=== PATIENT | male | born 1990 | race Caucasian/White ===

== ENCOUNTER 2016-06-09 22:21 | Inpatient (IN) | payer MEDICAID, OTHER ==
[~2016-06-09] VITALS: Ht 185.4 cm; Wt 55.0 kg
[2016-06-10 01:40] VITALS: BP 126/83; PULSE 92; RESP 16; TEMP 98; O2SAT 98
[2016-06-10] MEDS ORDERED: MAGNESIUM HYDROXIDE SUSP 30 ML CUP PO PRN (03:30)
[2016-06-10] MEDS ORDERED: BENZTROPINE MESYLATE 1 MG TAB PO PRN (03:30)
[2016-06-10] MEDS ORDERED: BENZTROPINE MESYLATE 2 MG/2 ML VIAL IM PRN (03:30)
[2016-06-10 06:07] VITALS: BP 89/66; PULSE 76; RESP 17; TEMP 97.5
--- NOTE | 2016-06-10 10:55 | HHI.HP ---
Provisional Diagnosis Admission Date Jun 10, 2016 at 01:45 [place] I. Adjustment disorder with depressed mood Rule out attention deficit disorder. Ferron II. No diagnosis Ferron III. Please see the emergency room evaluation Ferron IV. Moderate stress difficulty coping Ferron V. GAF of 45 Certification of Person's Competence To Provide Express and Informed Consent I have personally examined Albino Clark , a [facility] on, Jun 10, 2016 10:46. Express and informed consent means consent voluntarily given in writing, by a competent person, after sufficient explanation and disclosure of the subject matter involved to enable the person to make a knowing and willful decision without any element of force, fraud, deceit, duress, or other form of constraint or coercion. This person is 18 years of age or older, is not now known to be incompetent to consent to treatment with a guardian advocate, and does not have a health care surrogate or proxy currently making medical treatment decisions. I have found this person to be one of the following: [x] Competent to provide express and informed consent, as defined above, for voluntary admission to this facility and is competent to provide express and informed consent for treatment. He/she has the consistent capacity to make well reasoned, willful, and knowing decisions concerning his or her medical or mental health treatment. The person fully and consistently understands the purpose of the admission for examination/placement and is fully capable of personally exercising all rights assured under [place] Incompetent to provide express and informed consent to voluntary admission, and this is incompetent to provide express and informed consent to treatment. The person must be transferred to involuntary status and a petition for a guardian advocate filed with the Circuit Court. [] Refusing to provide express and informed consent to voluntary admission but is competent to provide express and informed consent for treatment. The person must be discharged or transferred to involuntary status. Form shall be completed within 24 hours of a person's arrival at the receiving facility and filed in the clinical record of each person: 1. Admitted on a voluntary basis 2. Permitted to provide express and informed consent to his/her own treatment 3. Allowed to transfer from involuntary to voluntary status 4. Prior to permitting a person to consent to his or her own treatment after having been previously found incompetent to consent to treatment. History of Present Illness Capacity: Has Capacity HPI This is a 25-year-old white to male who was admitted under Hernandez act because he was threatening to hurt himself. Patient claimed that he was under a lot of stress he was working out of town and his fiance left the baby is alone and they were taken away from him. At the present time the children are with the aunt. And he threatened to hurt himself to his cousin who called the police and patient was Hernandez acted. He feels frustrated he feels sorry he did not mean to harm himself he wants to go and take care of his baby and family. This is his first time he is in a psychiatric hospital. He has never attempted to harm himself or threatened to hurt himself. He doesn't abuse any alcohol or drugs. The only complaint he has is that he is he feels like he has a scatter brain he cannot focus on one thing he has 10 different things going on at the same time he is hyper he is worried about his daughter. When he tried his friend's Adderall it made a big difference that point still worse him having attention deficit disorder. Patient denied any active auditory or visual hallucinations or any suicidal ideation intentions or plan. He is willing to sign voluntary and cooperative with the treatment Review of Systems Constitutional: DENIES: Diaphoretic episodes, Fatigue, Fever, Weight gain, Weight loss, Chills, Dizziness, Change in appetite, Night Sweats Endocrine: DENIES: Heat/cold intolerance, Polydipsia, Polyuria, Polyphagia Eyes: DENIES: Blurred vision, Diplopia, Eye inflammation, Eye pain, Vision loss , Photosensitivity, Double Vision Ears, nose, mouth, throat: DENIES: Tinnitus, Hearing loss, Vertigo, Nasal discharge, Oral lesions, Throat pain, Hoarseness, Ear Pain, Running Nose, Epistaxis, Sinus Pain, Toothache, Odynophagia Respiratory: DENIES: Apneas, Cough, Snoring, Wheezing, Hemoptysis, Sputum production, Shortness of breath Cardiovascular: DENIES: Chest pain, Palpitations, Syncope, Dyspnea on Exertion , PND, Lower Extremity Edema, Orthopnea, Claudication Gastrointestinal: DENIES: Abdominal pain, Black stools, Bloody stools, Constipation, Diarrhea, Nausea, Vomiting, Difficulty Swallowing, Anorexia Genitourinary: DENIES: Sexual dysfunction, Urinary frequency, Urinary incontinence, Urgency, Hematuria, Dysuria, Nocturia, Penile Discharge, Testicular Pain, Testicular Swelling Musculoskeletal: DENIES: Joint pain, Muscle aches, Stiffness, Joint Swelling, Back pain, Neck pain Integumentary: DENIES: Abnormal pigmentation, Nail changes, Pruritus, Rash Hematologic/lymphatic: DENIES: Bruising, Lymphadenopathy Immunologic/allergic: DENIES: Eczema, Urticaria Neurologic: DENIES: Abnormal gait, Headache, Localized weakness, Paresthesias, Seizures, Speech Problems, Tremor, Poor Balance Psychiatric: COMPLAINS OF: Mood changes, Depression Past Psych History Psychological trauma history Patient denied any physical verbal or sexual abuse growing up his childhood was happy Violence risk - others (6 mos) Patient denies Violence risk - self (6 mos) Patient denies any suicidal ideation intentions or plan Substance Abuse History Drugs/Alcohol past 12 months Patient denied any alcohol or drug use and/or abuse Past Family Social History Coded Allergies: No Known Allergies (Unverified , 06/10/16) Current Medications Medications (Trade) Dose Ordered Sig/Jason Route Start Time Stop Time Status Last Admin (Atarax) 50 mg Q6H PRN PO 06/10/16 03:30 (Cogentin) 1 mg Q12H PRN PO 06/10/16 03:30 (Cogentin Inj) 1 mg Q12H PRN IM 06/10/16 03:30 (Desyrel) 50 mg HS PRN PO 06/10/16 03:30 (Tylenol) 650 mg Q4H PRN PO 06/10/16 03:30 (Milk Of Magnesia Liq) 30 ml DAILY PRN PO 06/10/16 03:30 (Mag-Al Plus Susp Liq) 30 ml Q6H PRN PO 06/10/16 03:30 (Pneumovax-23 Inj) 25 mcg ONCE ONCE IM 06/11/16 10:00 06/11/16 10:01 Family History Negative for any emotional difficulty nervous breakdown or suicide attempt Social History Patient was born in [place]. He has 3 sisters and 1 brother. He is close to his parents. Patient claimed that his childhood was pretty happy he denied any physical verbal or sexual abuse but he quit in 11th grade. He was living with his girlfriend and had one baby. He has been working out of town and trying to support the family. He denied any legal difficulty denies any drug abuse. Denied any previous history of inpatient psychiatric hospitalization or suicide attempt. Patient's Strengths (min. 2) Patient is cooperative willing to take the medication Physical Exam Patient denied any physical complaints occasionally he has pain in his right arm and he used to take Lortab that helps him. Denies any chest discomfort or lung problem or any other acute physical abnormality his vital signs are stable Vital Signs Vital Signs Date Time Temp Pulse Resp B/P Pulse Ox O2 Delivery O2 Flow Rate FiO2 06/10/16 06:07 97.5 76 17 89/66 06/10/16 01:40 98 Mental Status Examination This is a 25-year-old white male who looks about the same as his stated age was alert oriented 3 cooperative casually dressed his speech was slow without any evidence of loose associations or flights of ideas or pressure speech his mood was described as feeling depressed and worried about his daughter. His affect was sad and tearful. He denied any suicidal ideation intentions or plan denied any auditory or visual hallucinations. He denied any paranoid delusion. He seems to be of average intelligence with fairly good memory. His insight is fair and his judgment seems to be okay on hypothetical situation. His gait is normal. His language is normal his fund of knowledge is average Assessment & Plan Problem List: (1) Adjustment disorder with depressed mood ICD Code: F43.21 Assessment & Plan Estimated LOS: 3 days. This is a 25-year-old white male who was admitted under Hernandez act because he was threatening to harm himself. Patient claimed that he was under a lot of stress losing his 1-year-old daughter. But now he feels sorry he did not mean to harm himself he was telling his cousin and he called the police and he was Hernandez acted. His willing to work as an outpatient once his stabilize.. Admit observe and evaluate and treat Patient will participate in all the therapeutic activity on the floor. Patient may sign voluntary. We will give him Zoloft. We will ask social work nurse to assist in aftercare and discharge planning. Side effect another alternative treatment were explained to the patient. Request HC Surrog/Guard Advoc?: No Stu Mathis MD Jun 10, 2016 10:55
[2016-06-10 11:44] LABS: AUTOMATED NEUTROPHIL # 4.5 TH/MM3 (1.8-7.7); BASOPHIL % 0.3 % (0.0-2.0); EOSINOPHIL # 0.1 TH/MM3 (0-0.4); EOSINOPHIL % 1.2 % (0.0-4.0); HEMATOCRIT 49.8 % (39.0-51.0); HEMO FLAGS DIFF FINAL; LYMPH % 25.6 % (9.0-44.0); LYMPHOCYTE # 1.8 TH/MM3 (1.0-4.8); MEAN CELL VOLUME 90.7 FL (80.0-100.0); MEAN CORPUSCULAR HEMOGLOBIN 30.7 PG (27.0-34.0); MEAN CORPUSCULAR HGB CONC 33.9 % (32.0-36.0); MONO % 10.7 % (0.0-8.0); NEUT % 62.2 % (16.0-70.0); PLATELET COUNT 259 TH/MM3 (150-450); RED BLOOD COUNT 5.49 MIL/MM3 (4.50-5.90); RED CELL DISTRIBUTION WIDTH 13.9 % (11.6-17.2); WHITE BLOOD COUNT 7.2 TH/MM3 (4.0-11.0)
[2016-06-10] MEDS: DEXTROAMPHETAMINE/AMPHETAMINE 20 MG TAB PO SCH (12:00)
[2016-06-10 12:07] LABS: ALT (GPT) 16 U/L (12-78); ANION GAP 7 MEQ/L (5-15); AST (GOT) 11 U/L (15-37); BICARBONATE 30.2 MEQ/L (21.0-32.0); BLOOD UREA NITROGEN 13 MG/DL (7-18); CHLORIDE 104 MEQ/L (98-107); GLOMERULAR FILTRATION RATE 110 ML/MIN (>89); POTASSIUM 4.2 MEQ/L (3.5-5.1); SODIUM (NA) 141 MEQ/L (136-145)
[2016-06-10 12:09] LABS: ALKALINE PHOSPHATASE 58 U/L (45-117); TOTAL BILIRUBIN ADULT 0.6 MG/DL (0.2-1.0)
[2016-06-10] MEDS: ACETAMINOPHEN 325 MG TAB PO PRN (15:46)
[2016-06-10 18:15] VITALS: BP 122/90; PULSE 78; RESP 12; TEMP 97.9; O2SAT 99
[2016-06-10] MEDS: traZODone HCL 50 MG TAB PO PRN (21:24)
[2016-06-10] MEDS: SERTRALINE HCL 50 MG TAB PO SCH (21:24)
[2016-06-11 05:20] VITALS: BP 134/79; PULSE 94; RESP 18; TEMP 97.8; O2SAT 98
[2016-06-11] MEDS: DEXTROAMPHETAMINE/AMPHETAMINE 20 MG TAB PO SCH (09:29)
[2016-06-11] MEDS ORDERED: PNEUMOCOCCAL POLYVALENT INJ 25 MCG/0.5 ML SYR IM ONE (10:00)
--- NOTE | 2016-06-11 14:25 | HHI.PYPN ---
Subjective Remarks Pt seen in coverage for Dr. Pham. Chart reviewed. Case d/w RN. On my exam, pt c/o opiate w/d sxs. Says he uses 5x30mg Roxicodone/day. Endorses nausea, myalgias, rhinorrhea/lacrimation. Denies SI. Sleep poor. No side effects from medications. Review of Systems Other As above. Otherwise, no physical complaints. Objective Alert: Yes [place]: Person, Place, Date, Situation Mood: Anxious Affect: Restricted (dysphoric) Memory Intact: Comment (Fair) Hallucinations: Other (None) Delusions: No Delusion Type: Other (No delusions) Suicidal: Ideation (Denies SI) Homicidal: Ideation (No HI) Insight/Judgement Fair Remarks Somewhat diaphoretic with some lacrimation and piloerection. No rhinorrhea. No other motoric abnormalities. TP linear. Labs Labs reviewed. Vitals/IOs Vital Signs Date Time Temp Pulse Resp B/P Pulse Ox O2 Delivery O2 Flow Rate FiO2 06/11/16 05:20 97.8 94 18 134/79 98 Assessment & Plan Problem List: (1) Adjustment disorder with depressed mood ICD Code: F43.21 (2) Opiate dependence ICD Code: F11.20 Assessment & Plan Add opiate w/d meds: clonidine, Zofran, Imodium, baclofen. Wonder about using a psychostimulant in this opiate dependent pt but will continue for now. Encourage PO. Continue other medications and care as ordered. Justification for Cont. Inpt. Observing for safety. Discharge Planning Per Dr. Pham. Request HC Surrog/Guard Advoc?: No Problem Qualifiers (1) Opiate dependence: Qualified Code: F11.23 - Opioid dependence with withdrawal Abdiel Godwin MD Jun 11, 2016 14:25
[2016-06-11] MEDS ORDERED: LOPERAMIDE HCL 2 MG CAP PO PRN (14:30)
[2016-06-11] MEDS ORDERED: ONDANSETRON ODT 4 MG TAB PO PRN (14:30)
[2016-06-11] MEDS ORDERED: cloNIDine HCL 0.1 MG TAB PO PRN (14:30)
[2016-06-11] MEDS: BACLOFEN 10 MG TAB PO SCH (18:00)
[2016-06-11] MEDS: ACETAMINOPHEN 325 MG TAB PO PRN (18:41)
[2016-06-11 19:28] VITALS: BP 132/70; PULSE 102; RESP 18; TEMP 98; O2SAT 99
[2016-06-11] MEDS: traZODone HCL 50 MG TAB PO PRN (21:34)
[2016-06-11] MEDS: hydrOXYzine HCL 50 MG TAB PO PRN (21:34)
[2016-06-11] MEDS: SERTRALINE HCL 50 MG TAB PO SCH (21:34)
[2016-06-12 06:12] VITALS: BP 122/74; PULSE 71; RESP 18; TEMP 97.7; O2SAT 95
[2016-06-12] MEDS: DEXTROAMPHETAMINE/AMPHETAMINE 20 MG TAB PO SCH (09:04)
[2016-06-12] MEDS: BACLOFEN 10 MG TAB PO SCH ×3 (09:04→17:23)
[2016-06-12 09:11] LABS: BICARBONATE 30.4 MEQ/L (21.0-32.0); POTASSIUM 4.4 MEQ/L (3.5-5.1)
[2016-06-12] MEDS: hydrOXYzine HCL 50 MG TAB PO PRN (10:15)
--- NOTE | 2016-06-12 12:08 | HHI.PYPN ---
Subjective Remarks Patient seen and examined with nursing staff. Chart reviewed. Case discussed with nursing staff who reports patient is somewhat anxious and medication seeking. On my examination today, patient complains of poor sleep despite trazodone. He says he still feels "depressed and upset." His anxiety is little better he reports. Complaints of some sweats but no other withdrawal symptoms. Denies side effects from medications. Review of Systems Other Above and also patient complains of pain in his right elbow, reports history of remote fracture there without recent trauma. Otherwise, no reported physical complaints today. No lacrimation or rhinorrhea, no diarrhea. Objective Alert: Yes [place]: Person, Place, Date Mood: Anxious Affect: Restricted (dysphoric, less) Memory Intact: Comment (Fair) Hallucinations: Other (No AVH) Delusions: No Delusion Type: Other (No evident delusions) Suicidal: Ideation (No SI) Homicidal: Ideation (No HI) Insight/Judgement Fair Remarks No motoric abnormalities noted. TP linear. Speech wnl for rate. Labs Test 06/12/16 07:46 Sodium Level 139 MEQ/L Potassium Level 4.4 MEQ/L Chloride Level 102 MEQ/L Carbon Dioxide Level 30.4 MEQ/L Anion Gap 7 MEQ/L Blood Urea Nitrogen 23 MG/DL Creatinine 0.86 MG/DL Estimat Glomerular Filtration 107 ML/MIN Rate Random Glucose 88 MG/DL Calcium Level 9.6 MG/DL Labs reviewed. No renal impairment or electrolyte abnormalities noted. Vitals/IOs Vital Signs Date Time Temp Pulse Resp B/P Pulse Ox O2 Delivery O2 Flow Rate FiO2 06/12/16 06:12 97.7 71 18 122/74 95 Assessment & Plan Problem List: (1) Adjustment disorder with depressed mood ICD Code: F43.21 (2) Opiate dependence ICD Code: F11.20 Assessment & Plan Titrate baclofen to target ongoing complaints of subjective opiate withdrawal. Titrate trazodone for complaints of ongoing poor sleep. Image the right elbow given patient's complaints of pain there and history of remote injury. I have also added blood pressure parameters to patient's clonidine. Continue other medications and care as ordered. Justification for Cont. Inpt. Observing for safety Discharge Planning Per Dr. Pham Request HC Surrog/Guard Advoc?: No Problem Qualifiers (1) Opiate dependence: Qualified Code: F11.23 - Opioid dependence with withdrawal Abdiel Godwin MD Jun 12, 2016 12:08
[2016-06-12] MEDS: ACETAMINOPHEN 325 MG TAB PO PRN (13:15)
--- NOTE | 2016-06-12 17:51 | RADRPT ---
EXAM DATE/TIME: 06/12/2016 17:37 [facility] COMPARISON: No previous studies available for comparison. INDICATIONS : Right elbow pain. MEDICAL HISTORY : Prior elbow fracture. SURGICAL HISTORY : None. ENCOUNTER: Initial ACUITY: >1 year PAIN SCORE: 6/10 LOCATION: Right elbow. FINDINGS: 2 views of the right elbow show prior trauma to the radial neck and head with secondary advanced oste oarthritis. A free body is questioned within the joint space. No acute fracture. No joint effusion. S oft tissues are unremarkable. CONCLUSION: Old trauma with secondary advanced osteoarthritis and questionable free body within the joint. Eros Lundberg Jr., MD on June 12, 2016 at 17:48 Board Certified Radiologist. This report was verified electronically.
[2016-06-12 18:00] VITALS: BP 128/72; PULSE 78; RESP 18; TEMP 98.1; O2SAT 98
[2016-06-12] MEDS: SERTRALINE HCL 50 MG TAB PO SCH (20:52)
[2016-06-13 06:20] VITALS: BP 124/79; PULSE 64; RESP 17; TEMP 97.3
[2016-06-13] MEDS: BACLOFEN 10 MG TAB PO SCH ×3 (08:45→18:00)
[2016-06-13] MEDS: DEXTROAMPHETAMINE/AMPHETAMINE 20 MG TAB PO SCH (08:46)
[2016-06-13] MEDS: ACETAMINOPHEN 325 MG TAB PO PRN (13:47)
--- NOTE | 2016-06-13 14:35 | HHI.PYPN ---
Subjective Remarks Patient seen and examined. Chart reviewed. Case discussed with nursing staff who reports patient is quite medication focused. Indeed, on my examination today, patient opens the discussion by perseverating on having difficulty sleeping due to not having access to his sleep medications last night. It does not appear that patient received increased dose of Trazodone I ordered for him. Reports he feels "depressed, upset" but denies any suicidal ideation or auditory hallucinations. Says he feels anxious, particularly in social situations, and he wonders if we might adjust medications to help manage this symptom. Denies side effects from medications. Review of Systems Other Complains of right elbow pain. Otherwise no physical complaints. Objective Alert: Yes [place]: Person, Place, Date Mood: Anxious, Depressed Affect: Blunted Memory Intact: Comment (intact on clinical exam) Hallucinations: Other (none) Delusions: No Delusion Type: Other (no delusions) Suicidal: Ideation (denies SI) Homicidal: Ideation (no HI voiced) Insight/Judgement Fair Remarks No objective signs of withdrawal noted. No abnormal motor movements noted. Thought process linear. Speech within normal limits for rate, tone and volume. Labs Labs reviewed. No new labs. Last Impressions Elbow X-Ray 06/12/16 0000 Signed Impressions: Service Date/Time: Sunday, June 12, 2016 17:37 - CONCLUSION: Old trauma with secondary advanced osteoarthritis and questionable free body within the joint. 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 Patient does have trazodone available as needed for sleep. Continue medications for the management of opiate withdrawal symptoms. Elbow x-ray is negative for acute process although he does have secondary osteoarthritis. GFR is okay and so I will start the patient on a course of scheduled naproxen for the management of his musculoskeletal pain. Continue other medications include care as ordered. Justification for Cont. Inpt. Medication adjustments. Discharge Planning Per Dr. Pham Request HC Surrog/Guard Advoc?: No Problem Qualifiers (1) Opiate dependence: Qualified Code: F11.23 - Opioid dependence with withdrawal Abdiel Godwin MD Jun 13, 2016 14:35
[2016-06-13] MEDS: NICOTINE 21 MG/24 HR PATCH TD SCH (16:00)
[2016-06-13 18:00] VITALS: BP_SYST 118; BP_SYST 124; BP_DIAS 75; BP_DIAS 79; PULSE 100; PULSE 64; RESP 17; TEMP 96.2; TEMP 97.3; O2SAT 98
[2016-06-13] MEDS: NAPROXEN 500 MG TAB PO SCH (22:08)
[2016-06-13] MEDS: SERTRALINE HCL 50 MG TAB PO SCH (22:08)
[2016-06-13] MEDS: hydrOXYzine HCL 50 MG TAB PO PRN (22:12)
[2016-06-13] MEDS: traZODone HCL 50 MG TAB PO PRN (22:14)
[2016-06-14] MEDS: hydrOXYzine HCL 50 MG TAB PO PRN (05:31)
[2016-06-14] MEDS: ACETAMINOPHEN 325 MG TAB PO PRN ×3 (05:39→22:26)
[2016-06-14 06:03] VITALS: BP 140/67; PULSE 85; RESP 16; TEMP 97.4; O2SAT 98
[2016-06-14] MEDS: DEXTROAMPHETAMINE/AMPHETAMINE 20 MG TAB PO SCH (09:00)
[2016-06-14] MEDS: REMOVE OLD PATCH TD SCH (09:00)
[2016-06-14] MEDS: BACLOFEN 10 MG TAB PO SCH ×3 (09:12→18:00)
[2016-06-14] MEDS: NAPROXEN 500 MG TAB PO SCH ×2 (09:12→21:27)
[2016-06-14] MEDS: NICOTINE 21 MG/24 HR PATCH TD SCH (09:13)
[2016-06-14] MEDS: ALUMINUM/MAGNESIUM/SIMETH 30 ML CUP PO PRN (14:15)
[2016-06-14] MEDS: traZODone HCL 50 MG TAB PO PRN (21:25)
[2016-06-14] MEDS: SERTRALINE HCL 50 MG TAB PO SCH (21:27)
[2016-06-14 21:29] VITALS: BP 118/80; PULSE 91; RESP 18; TEMP 97.2; O2SAT 98
[2016-06-15 06:07] VITALS: BP 113/59; PULSE 76; RESP 16; TEMP 97.9
[2016-06-15] MEDS: ALUMINUM/MAGNESIUM/SIMETH 30 ML CUP PO PRN (06:16)
[2016-06-15] MEDS: ACETAMINOPHEN 325 MG TAB PO PRN ×2 (06:16→10:30)
[2016-06-15] MEDS: DEXTROAMPHETAMINE/AMPHETAMINE 20 MG TAB PO SCH (08:07)
[2016-06-15] MEDS: NAPROXEN 500 MG TAB PO SCH (08:07)
[2016-06-15] MEDS: BACLOFEN 10 MG TAB PO SCH (08:07)
[2016-06-15] MEDS: NICOTINE 21 MG/24 HR PATCH TD SCH (08:27)
[2016-06-15] MEDS: REMOVE OLD PATCH TD SCH (08:27)
--- NOTE | 2016-06-15 13:01 | HHI.DS ---
Psychiatry Discharge Summary Inpatient Psychiatric care?: Yes Advance Directive: No Reason Not Provided: NOT INTERESTED Mental Health AdvanceDirective: No Health Care Proxy: No Admission Admission Date Jun 10, 2016 at 01:45 Admission Diagnosis: (1) Adjustment disorder with depressed mood ICD Code: F43.21 GAF Score: 45 Brief History This is a 25-year-old white to male who was admitted under Hernandez act because he was threatening to hurt himself. Patient claimed that he was under a lot of stress he was working out of town and his fiance left the baby is alone and they were taken away from him. At the present time the children are with the aunt. And he threatened to hurt himself to his cousin who called the police and patient was Hernandez acted. He feels frustrated he feels sorry he did not mean to harm himself he wants to go and take care of his baby and family. This is his first time he is in a psychiatric hospital. He has never attempted to harm himself or threatened to hurt himself. He doesn't abuse any alcohol or drugs. The only complaint he has is that he is he feels like he has a scatter brain he cannot focus on one thing he has 10 different things going on at the same time he is hyper he is worried about his daughter. When he tried his friend's Adderall it made a big difference that point still worse him having attention deficit disorder. Patient denied any active auditory or visual hallucinations or any suicidal ideation intentions or plan. He is willing to sign voluntary and cooperative with the treatment Tobacco Use In Past 30 Days: 5 or More Cigarettes/Day Alcohol Use: Monthly or Less Hospital Course Patient was started on supportive treatment. He participated in all the therapeutic activity on the floor. The medication was adjusted. He started to feel better. He denied any suicidal ideation intentions of plan. Denied any auditory or visual hallucinations. No side effects were complained. Willing to take the medication and follow-up with that as an outpatient. At that point arrangements were made for him to be discharged Results Blood Pressure 113 / 59 Vital Signs Date Time Temp Pulse Resp B/P Pulse Ox O2 Delivery O2 Flow Rate FiO2 06/15/16 06:07 97.9 76 16 113/59 06/14/16 21:29 98 Please see the EMR Summary of Major Lab Results Nothing significant Summary of Procedures None Imaging Last Impressions Elbow X-Ray 06/12/16 0000 Signed Impressions: Service Date/Time: Sunday, June 12, 2016 17:37 - CONCLUSION: Old trauma with secondary advanced osteoarthritis and questionable free body within the joint. Eros Lundberg Jr., MD Pending results at discharge: No Medications # of Antipsychotic meds at D/C: 0 Approp Antipsych med options 1 - Minimum of three failed multiple trials of monotherapy. 2 - Documented plan to taper to monotherapy due to previous use of multiple meds OR cross-taper in progress at D/C. 3 - Documentation of augmentation of Clozapine. 4 - Justification other than those listed in allowable values 1-3, document here : Discharge Discharge Date: Jun 15, 2016 Discharge Diagnosis: (1) Adjustment disorder with depressed mood Diagnosis: Principal ICD Code: F43.21 Mental Status Exam at Disch Patient was alert oriented 3 cooperative casually dressed. His speech was clear spontaneous without any evidence of loose associations. His mood was described as feeling much improved. Denied any suicidal ideation intentions or plan. Willing to take the medication and follow-up as an outpatient. Denied any auditory or visual hallucinations. No side effects were complained Pt Condition on Discharge: Stable Discharge Disposition: Discharge Home Discharge Instructions Diet Instructions: As Tolerated, No Restrictions Activities you can perform: Regular-No Restrictions Scheduled Appointment: Abelino Baker Discharge Time <= 30 minutes Discharge/Advance Care Plan Health Problems: (1) Adjustment disorder with depressed mood (2) Opiate dependence (3) Secondary osteoarthritis, right elbow Goals to promote your health * To prevent worsening of your condition and complications * To maintain your health at the optimal level Directions to meet your goals Take your medications as prescribed Follow your dietary instruction Follow activity as directed Keep your appointments as scheduled Take your immunizations and boosters as scheduled If your symptoms worsen call your PCP, if no PCP go to Urgent Care Center or Emergency Room For 03/01 questions related to your inpatient stay or results of tests pending at discharge, please contact Dr. Stu Mathis at Smoking is Dangerous to Your Health. Avoid second hand smoking Stu Mathis MD Jun 15, 2016 13:01
[2016-06-15] MEDS ORDERED: ADDE20 PO (13:03)
[2016-06-15] MEDS ORDERED: ZOLO50TA PO (13:03)
== END 2016-06-15 14:11 | disposition home or self-care (01) | DRG 881 ==
LOC: H260 06-10 01:45
PROVIDERS: ADMIT Psychiatry & Neurology Addiction Medicine; ATTEND Psychiatry & Neurology Addiction Medicine
DX: F43.21 Adjustment disorder with depressed mood (principal); F11.23 Opioid dependence with withdrawal; M19.221 Secondary osteoarthritis, right elbow
CPT/HCPCS: 73070; 80048; 80053; 85025